=== PATIENT | female | born 1985 | race Caucasian/White ===

== ENCOUNTER → 2019-06-20 | Outpatient (CLI) | payer SELFPAY | END | disposition home or self-care (01) | LOC: LAB SHORT 14:05 → LAB 14:05 | DX: Z09 Encounter for follow-up examination after completed treatment for conditions other than malignant neoplasm (principal); Z86.14 Personal history of Methicillin resistant Staphylococcus aureus infection | CPT/HCPCS: 87070; 87075; 87205 ==

== ENCOUNTER 2019-11-16 10:57 | Emergency (ER) | payer SELFPAY ==
[~2019-11-16] VITALS: Ht 165.1 cm; Wt 61.2 kg
[2019-11-16] MEDS ORDERED: VITAMINS (12:32)
[2019-11-16] MEDS ORDERED: ALPR.5 PO (12:32)
== END 2019-11-16 14:47 | disposition home or self-care (01) ==
LOC: ER 10:57
DX: S96.911A Strain of unspecified muscle and tendon at ankle and foot level, right foot, initial encounter (principal); F17.200 Nicotine dependence, unspecified, uncomplicated; Z88.6 Allergy status to analgesic agent; Z88.5 Allergy status to narcotic agent; Z79.899 Other long term (current) drug therapy; X50.1XXA Overexertion from prolonged static or awkward postures, initial encounter; Y93.89 Activity, other specified
CPT/HCPCS: 73630; 99283-25

== ENCOUNTER 2020-09-04 17:34 | Emergency (ER) | payer SELFPAY ==
[~2020-09-04] VITALS: Ht 165.1 cm; Wt 61.2 kg
[~2020-09-04 17:34] MED LIST: ALPR.5 PO; VITAMINS
[2020-09-04 18:12] LABS: BASOPHILS ABSOLUTE AUTO 0.04 K/mm3 (0.00-0.23); BASOPHILS PERCENT AUTO 0 % (0-2); EOSINOPHILS ABSOLUTE AUTO 0.03 K/mm3 (0.00-0.68); EOSINOPHILS PERCENT AUTO 0 % (0-6); IMMATURE GRAN ABSOLUTE AUTO 0.03 K/mm3 (0.00-0.10); IMMATURE GRAN PERCENT AUTO 0 % (0-1); LYMPHOCYTES ABSOLUTE AUTO 2.89 K/mm3 (0.84-5.20); LYMPHOCYTES PERCENT AUTO 27 % (21-46); MONOCYTES ABSOLUTE AUTO 0.87 K/mm3 (0.16-1.47); MONOCYTES PERCENT AUTO 8 % (4-13); Mean Corpuscular HGB Conc 35.1 g/dL (31.5-36.5); Mean Corpuscular Volume 100 fL (80-100); Mean Platelet Volume 11.2 fL (9.1-12.4); NEUTROPHILS ABSOLUTE AUTO 7.01 K/mm3 (1.96-9.15); NEUTROPHILS PERCENT AUTO 64 % (41-73); Platelet Count 301 K/mm3 (150-400); RDW Coefficient Variation 12.2 % (11.7-14.2); RDW Standard Deviation 45.1 fL (35.1-46.3); Red Blood Cell Count 3.71 M/mm3 (3.80-5.20); White Blood Cell Count 10.87 K/mm3 (4.00-11.30)
[2020-09-04 18:40] LABS: Alanine Aminotransfer (ALT/SGP 31 U/L (12-78); Albumin, Blood 4.2 g/dL (3.4-5.0); Albumin/Globulin Ratio 1.2 (0.8-1.8); Alk Phos 40 U/L (50-136); Anion Gap 4 mmol/L (6-16); Aspartate Aminotrans (AST/SGOT 19 U/L (12-37); Bilirubin, Total 0.3 mg/dL (0.1-1.0); Blood Urea Nitrogen 11 mg/dL (8-24); Bun/Creatinine Ratio 15.6 (12.0-20.0); CO2, Blood 27 mmol/L (21-32); Calcium, Blood 9.1 mg/dL (8.5-10.1); Chloride, Blood 106 mmol/L (98-108); Creatinine, Blood 0.71 mg/dL (0.40-1.00); Globulin, Blood 3.5 g/dL (2.2-4.0); Glomerular Filtration Rate >60 (60-); Glucose, Blood 102 mg/dL (70-99); Potassium, Blood 3.8 mmol/L (3.5-5.5); Sodium, Blood 137 mmol/L (136-145); Total Protein, Blood 7.7 g/dL (6.4-8.2)
[2020-09-04] MEDS ORDERED: SUCR1 PO (19:34)
[2020-09-04] MEDS ORDERED: Omeprazole20 M1 PO (19:34)
== END 2020-09-04 20:46 | disposition home or self-care (01) ==
LOC: ER 17:34
PROVIDERS: Physician Assistant
DX: K29.70 Gastritis, unspecified, without bleeding (principal); Z88.6 Allergy status to analgesic agent; Z88.5 Allergy status to narcotic agent; Z87.891 Personal history of nicotine dependence
CPT/HCPCS: 36415; 80053; 84703; 85025; 93971; 99284-25; A9270

== ENCOUNTER → 2020-10-06 | Outpatient (CLI) | payer OTHER ==
[~2020-10-06] MED LIST changes: +Omeprazole20 M1 PO; +SUCR1 PO
[2020-10-07 13:08] LABS: HPV 16 Negative (Negative); HPV 18 Negative (Negative); HPV OTHER HR TYPES Negative (Negative)
== END ==
LOC: LAB SHORT 15:20 → LAB 15:20
PROVIDERS: Obstetrics & Gynecology
DX: N80.3 Endometriosis of pelvic peritoneum (principal)
CPT/HCPCS: 87624; G0145

== ENCOUNTER 2021-02-14 13:35 | Emergency (ER) | payer OTHER ==
[~2021-02-14] VITALS: Ht 162.6 cm; Wt 65.8 kg
[2021-02-14] MEDS ORDERED: AMOCLA875 PO (14:12)
== END 2021-02-14 14:25 | disposition home or self-care (01) ==
LOC: ER 13:35
DX: J32.9 Chronic sinusitis, unspecified (principal); B96.89 Other specified bacterial agents as the cause of diseases classified elsewhere; Z88.6 Allergy status to analgesic agent; Z88.8 Allergy status to other drugs, medicaments and biological substances; Z87.891 Personal history of nicotine dependence
CPT/HCPCS: 99284

== ENCOUNTER → 2021-02-16 | Outpatient (CLI) | payer OTHER ==
[~2021-02-16] MED LIST changes: +AMOCLA875 PO
[2021-02-16 19:34] LABS: International Normalized Ratio 1.04; Prothrombin Time Results 10.9 Sec (9.7-11.5)
== END | disposition home or self-care (01) ==
LOC: LAB SHORT 17:48
PROVIDERS: Chiropractor
DX: S39.011A Strain of muscle, fascia and tendon of abdomen, initial encounter (principal)
CPT/HCPCS: 85610; 85730

== ENCOUNTER 2021-03-17 12:17 | Day surgery (SDC) | payer OTHER ==
[~2021-03-17] VITALS: Ht 165.1 cm; Wt 59.5 kg
[2021-03-17] MEDS ORDERED: VITAMIN D310 MC1 PO (12:43)
--- NOTE | 2021-03-17 14:01 | NUR ---
03/17/21 1401 Steph Gandara CHLORAPREP USED BY [email or web address] TO PREP ABDOMEN. SIMIN AREA PREPPED WITH CHLORAHEXADINE BY [facility].
--- NOTE | 2021-03-17 16:45 | NUR ---
03/17/21 Shantal Hernandez 1525 PATIENT C/O PAIN NOTED TO LLQ, BULGE NOTED TO LLQ, MANUAL PRESSURE APPLIED. DR. STUBBS NOTIFIED. 1527 DR. STUBBS @ BEDSIDE TO EVALUATE PATIENT, NEW ORDER ABDOMINAL BINDER, WILL APPLIED AND CONTINUE TO MONITOR
--- NOTE | 2021-03-17 16:47 | NUR ---
03/17/21 8420 Shantal Scott @ 4561 DR. STUBBS @ BEDSIDE TO EVALUATE PATIENT, OK TO DISCHARGE, BINDER TO REMAIN IN PLACE FOR 24 HOURS, PATIENT WILL CALL MD OFFICE FOR NEW APPOINTMENT.
== END 2021-03-17 16:56 | disposition home or self-care (01) ==
LOC: ORSCSDS 12:17
PROVIDERS: Obstetrics & Gynecology
PROC: 0WBH4ZX Excision of Retroperitoneum, Percutaneous Endoscopic Approach, Diagnostic (ICD-10-PCS; principal; 2021-03-17 13:30)
PROC: 0UB74ZZ Excision of Bilateral Fallopian Tubes, Percutaneous Endoscopic Approach (ICD-10-PCS; principal; 2021-03-17 13:30)
DX: N80.3 Endometriosis of pelvic peritoneum (principal); F17.210 Nicotine dependence, cigarettes, uncomplicated
CPT/HCPCS: 88302; 88305; A9270; J0171; J1100; J2250; J2405; J2704; J2710; J3010; J7120

== ENCOUNTER → 2021-07-15 | Outpatient (CLI) | payer OTHER ==
[~2021-07-15] MED LIST changes: +VITAMIN D310 MC1 PO
[2021-07-16 10:27] LABS: Candida species (DNA Probe) Negative (NEGATIVE); G. vaginalis (DNA Probe) Negative (NEGATIVE); T. vaginalis (DNA Probe) Negative (NEGATIVE)
== END | disposition home or self-care (01) ==
LOC: LAB 11:25 → LAB SHORT 11:25
PROVIDERS: Obstetrics & Gynecology
DX: B37.3 Candidiasis of vulva and vagina (principal)
CPT/HCPCS: 87480; 87510; 87660

== ENCOUNTER 2021-09-26 17:02 | Emergency (ER) | payer OTHER ==
[~2021-09-26] VITALS: Ht 165.1 cm; Wt 59.0 kg
[2021-09-26] MEDS ORDERED: OXYC5 PO (20:24)
== END 2021-09-26 20:44 | disposition home or self-care (01) ==
LOC: ER 17:02
DX: S61.412A Laceration without foreign body of left hand, initial encounter (principal); W26.0XXA Contact with knife, initial encounter; Z88.5 Allergy status to narcotic agent; Z88.8 Allergy status to other drugs, medicaments and biological substances; Z87.891 Personal history of nicotine dependence; Z23 Encounter for immunization
CPT/HCPCS: 90714; A9270

== ENCOUNTER → 2022-01-04 | Outpatient (CLI) | payer OTHER ==
[~2022-01-04] MED LIST changes: +OXYC5 PO
[2022-01-04 16:00] LABS: BASOPHILS ABSOLUTE AUTO 0.04 K/mm3 (0.00-0.23); BASOPHILS PERCENT AUTO 1 % (0-2); EOSINOPHILS ABSOLUTE AUTO 0.07 K/mm3 (0.00-0.68); EOSINOPHILS PERCENT AUTO 1 % (0-6); Hematocrit 35.6 % (33.0-51.0); Hemoglobin 12.6 g/dL (11.5-16.0); IMMATURE GRAN ABSOLUTE AUTO 0.02 K/mm3 (0.00-0.10); IMMATURE GRAN PERCENT AUTO 0 % (0-1); LYMPHOCYTES ABSOLUTE AUTO 2.26 K/mm3 (0.84-5.20); LYMPHOCYTES PERCENT AUTO 31 % (21-46); MONOCYTES PERCENT AUTO 7 % (4-13); Mean Corpuscular HGB 34.2 pg (26.0-34.0); Mean Corpuscular HGB Conc 35.4 g/dL (31.5-36.5); Mean Corpuscular Volume 97 fL (80-100); Mean Platelet Volume 10.9 fL (9.1-12.4); NEUTROPHILS ABSOLUTE AUTO 4.44 K/mm3 (1.96-9.15); NEUTROPHILS PERCENT AUTO 61 % (41-73); Platelet Count 273 K/mm3 (150-400); RDW Coefficient Variation 12.1 % (11.7-14.2); RDW Standard Deviation 43.4 fL (35.1-46.3); Red Blood Cell Count 3.68 M/mm3 (3.80-5.20); White Blood Cell Count 7.33 K/mm3 (4.00-11.30)
== END | disposition home or self-care (01) ==
LOC: LAB 15:55 → LAB SHORT 15:55
PROVIDERS: Family Medicine
DX: R10.2 Pelvic and perineal pain (principal)
CPT/HCPCS: 85025

== ENCOUNTER → 2022-04-28 | Outpatient (CLI) | payer OTHER ==
[2022-04-29 15:12] LABS: HPV 16 Negative (Negative); HPV 18 Negative (Negative); HPV OTHER HR TYPES Negative (Negative)
== END | disposition home or self-care (01) ==
LOC: LAB SHORT 17:18 → LAB 17:18
PROVIDERS: Obstetrics & Gynecology
DX: Z01.419 Encounter for gynecological examination (general) (routine) without abnormal findings (principal)
CPT/HCPCS: 87624; G0145

== ENCOUNTER → 2022-07-25 | Outpatient (CLI) | payer OTHER | LOC: LAB 13:22 → LAB SHORT 13:22 | DX: R30.0 Dysuria (principal) | CPT/HCPCS: 87086 ==

== ENCOUNTER → 2022-12-09 | Outpatient (CLI) | payer OTHER ==
[2022-12-09 19:01] LABS: BASOPHILS ABSOLUTE AUTO 0.07 K/mm3 (0.00-0.23); BASOPHILS PERCENT AUTO 1 % (0-2); EOSINOPHILS ABSOLUTE AUTO 0.07 K/mm3 (0.00-0.68); EOSINOPHILS PERCENT AUTO 1 % (0-6); Hematocrit 37.3 % (33.0-51.0); Hemoglobin 12.9 g/dL (11.5-16.0); IMMATURE GRAN ABSOLUTE AUTO 0.02 K/mm3 (0.00-0.10); IMMATURE GRAN PERCENT AUTO 0 % (0-1); LYMPHOCYTES ABSOLUTE AUTO 2.61 K/mm3 (0.84-5.20); LYMPHOCYTES PERCENT AUTO 33 % (21-46); MONOCYTES ABSOLUTE AUTO 0.57 K/mm3 (0.16-1.47); MONOCYTES PERCENT AUTO 7 % (4-13); Mean Corpuscular HGB 33.3 pg (26.0-34.0); Mean Corpuscular HGB Conc 34.6 g/dL (31.5-36.5); Mean Corpuscular Volume 96 fL (80-100); Mean Platelet Volume 10.5 fL (9.1-12.4); NEUTROPHILS ABSOLUTE AUTO 4.65 K/mm3 (1.96-9.15); NEUTROPHILS PERCENT AUTO 58 % (41-73); Platelet Count 349 K/mm3 (150-400); RDW Coefficient Variation 11.8 % (11.7-14.2); RDW Standard Deviation 41.6 fL (35.1-46.3); Red Blood Cell Count 3.87 M/mm3 (3.80-5.20); White Blood Cell Count 7.99 K/mm3 (4.00-11.30)
[2022-12-09 19:14] LABS: Albumin, Blood 4.4 g/dL (3.4-5.0); Albumin/Globulin Ratio 1.2 (0.8-1.8); Bilirubin, Total 0.4 mg/dL (0.1-1.0); Bun/Creatinine Ratio 17.8 (12.0-20.0); Calcium, Blood 9.1 mg/dL (8.5-10.1); Creatinine, Blood 0.9 mg/dL (0.40-1.00); Globulin, Blood 3.6 g/dL (2.2-4.0); Potassium, Blood 3.9 mmol/L (3.5-5.5)
== END | disposition home or self-care (01) ==
LOC: LAB SHORT 18:58 → LAB 18:58
PROVIDERS: Emergency Medicine
DX: R11.0 Nausea (principal)
CPT/HCPCS: 80053; 83690; 85025

== ENCOUNTER 2023-01-01 21:02 | Emergency (ER) | payer OTHER ==
[~2023-01-01] VITALS: Ht 165.1 cm; Wt 61.2 kg
[2023-01-01 21:43] VITALS: BP 108/65
== END 2023-01-01 21:51 | disposition home or self-care (01) ==
LOC: ER 21:02
DX: S01.112A Laceration without foreign body of left eyelid and periocular area, initial encounter (principal); W01.198A Fall on same level from slipping, tripping and stumbling with subsequent striking against other object, initial encounter; Z88.6 Allergy status to analgesic agent; Z88.8 Allergy status to other drugs, medicaments and biological substances; Z88.5 Allergy status to narcotic agent; Z79.899 Other long term (current) drug therapy; Z87.891 Personal history of nicotine dependence
CPT/HCPCS: 12001; 99282-25

== ENCOUNTER 2023-08-25 20:20 | Emergency (ER) | payer OTHER ==
[~2023-08-25] VITALS: Ht 165.1 cm; Wt 62.6 kg
[2023-08-25 21:08] LABS: Albumin, Blood 4.2 g/dL (3.4-5.0); Albumin/Globulin Ratio 1.3 (0.8-1.8); Bilirubin, Total 0.4 mg/dL (0.1-1.0); Bun/Creatinine Ratio 26.7 (12.0-20.0); Calcium, Blood 8.5 mg/dL (8.5-10.1); Creatinine, Blood 0.83 mg/dL (0.40-1.00); Globulin, Blood 3.2 g/dL (2.2-4.0); Total Protein, Blood 7.4 g/dL (6.4-8.2)
[2023-08-25 21:14] LABS: BASOPHILS ABSOLUTE AUTO 0.04 K/mm3 (0.00-0.23); BASOPHILS PERCENT AUTO 1 % (0-2); EOSINOPHILS ABSOLUTE AUTO 0.05 K/mm3 (0.00-0.68); EOSINOPHILS PERCENT AUTO 1 % (0-6); Hematocrit 33.9 % (33.0-51.0); Hemoglobin 11.8 g/dL (11.5-16.0); IMMATURE GRAN ABSOLUTE AUTO 0.01 K/mm3 (0.00-0.10); IMMATURE GRAN PERCENT AUTO 0 % (0-1); LYMPHOCYTES ABSOLUTE AUTO 3.14 K/mm3 (0.84-5.20); LYMPHOCYTES PERCENT AUTO 41 % (21-46); MONOCYTES ABSOLUTE AUTO 0.54 K/mm3 (0.16-1.47); MONOCYTES PERCENT AUTO 7 % (4-13); Mean Corpuscular HGB 33.4 pg (26.0-34.0); Mean Corpuscular HGB Conc 34.8 g/dL (31.5-36.5); Mean Corpuscular Volume 96 fL (80-100); Mean Platelet Volume 11.2 fL (9.1-12.4); NEUTROPHILS ABSOLUTE AUTO 3.96 K/mm3 (1.96-9.15); NEUTROPHILS PERCENT AUTO 51 % (41-73); Platelet Count 301 K/mm3 (150-400); RDW Coefficient Variation 11.9 % (11.7-14.2); RDW Standard Deviation 41.9 fL (35.1-46.3); Red Blood Cell Count 3.53 M/mm3 (3.80-5.20); White Blood Cell Count 7.74 K/mm3 (4.00-11.30)
[2023-08-25 23:30] VITALS: BP 127/92
== END 2023-08-25 23:44 | disposition home or self-care (01) ==
LOC: ER 20:20
PROVIDERS: Emergency Medicine
DX: M62.838 Other muscle spasm (principal); Z88.8 Allergy status to other drugs, medicaments and biological substances; Z88.6 Allergy status to analgesic agent; Z88.5 Allergy status to narcotic agent; Z79.899 Other long term (current) drug therapy; Z87.891 Personal history of nicotine dependence
CPT/HCPCS: 71046; 80053; 84484; 85025; 93005; 93010; 99284-25

== ENCOUNTER → 2024-03-12 | Outpatient (CLI) | payer OTHER ==
[2024-03-15 15:26] LABS: ANTI-NUCLEAR AB ANA,IGG ELISA None Detected (None Detected)
== END | disposition home or self-care (01) ==
LOC: LAB 17:56 → LAB SHORT 17:56
PROVIDERS: Physician Assistant Medical
DX: R23.1 Pallor (principal)
CPT/HCPCS: 85651; 86038; 86140

== ENCOUNTER → 2024-10-28 | Emergency (ER) | payer OTHER ==
[~2024-10-28] VITALS: Ht 165.1 cm; Wt 63.5 kg
[2024-10-28 11:13] VITALS: BP 142/106
[2024-10-28 11:42] LABS: BASOPHILS ABSOLUTE AUTO 0.04 K/mm3 (0.00-0.23); BASOPHILS PERCENT AUTO 1 % (0-2); EOSINOPHILS ABSOLUTE AUTO 0.01 K/mm3 (0.00-0.68); EOSINOPHILS PERCENT AUTO 0 % (0-6); Hematocrit 37.4 % (33.0-51.0); Hemoglobin 12.7 g/dL (11.5-16.0); IMMATURE GRAN ABSOLUTE AUTO 0.02 K/mm3 (0.00-0.10); IMMATURE GRAN PERCENT AUTO 0 % (0-1); LYMPHOCYTES ABSOLUTE AUTO 1.73 K/mm3 (0.84-5.20); LYMPHOCYTES PERCENT AUTO 27 % (21-46); MONOCYTES ABSOLUTE AUTO 0.39 K/mm3 (0.16-1.47); MONOCYTES PERCENT AUTO 6 % (4-13); Mean Corpuscular HGB Conc 34.0 g/dL (31.5-36.5); Mean Corpuscular Volume 96 fL (80-100); NEUTROPHILS ABSOLUTE AUTO 4.20 K/mm3 (1.96-9.15); NEUTROPHILS PERCENT AUTO 66 % (41-73); NRBC ABSOLUTE 0.00 K/mm3 (0.00-0.02); NRBC Auto 0.0 /100 WBC (0.0-0.2); Platelet Count 287 K/mm3 (150-400); RDW Coefficient Variation 12.6 % (11.7-14.2); RDW Standard Deviation 43.8 fL (35.1-46.3)
[2024-10-28 12:04] LABS: Alanine Aminotransfer (ALT/SGP 29.0 U/L (12-78); Albumin, Blood 4.3 g/dL (3.4-5.0); Albumin/Globulin Ratio 1.3 (0.8-1.8); Anion Gap 4.0 mmol/L (3-11); Aspartate Aminotrans (AST/SGOT 25.0 U/L (12-37); Bilirubin, Total 0.4 mg/dL (0.1-1.0); Blood Urea Nitrogen 13.0 mg/dL (8-24); CO2, Blood 30.0 mmol/L (21-32); Calcium, Blood 8.7 mg/dL (8.5-10.1); Chloride, Blood 105.0 mmol/L (98-108); Creatinine, Blood 0.74 mg/dL (0.40-1.00); Globulin, Blood 3.2 g/dL (2.2-4.0); Glucose, Blood 104.0 mg/dL (70-99); Potassium, Blood 4.4 mmol/L (3.5-5.5); Sodium, Blood 135.0 mmol/L (136-145); Total Protein, Blood 7.5 g/dL (6.4-8.2)
== END ==
LOC: ER 10:23
PROVIDERS: Emergency Medicine
DX: S29.011A Strain of muscle and tendon of front wall of thorax, initial encounter (principal); X58.XXXA Exposure to other specified factors, initial encounter
CPT/HCPCS: 71046; 80053; 84484; 85025

== ENCOUNTER 2024-11-05 16:44 | Emergency (ER) | payer OTHER ==
[~2024-11-05] VITALS: Ht 165.1 cm; Wt 63.5 kg
[2024-11-05 17:53] LABS: BASOPHILS ABSOLUTE AUTO 0.04 K/mm3 (0.00-0.23); BASOPHILS PERCENT AUTO 1 % (0-2); EOSINOPHILS ABSOLUTE AUTO 0.05 K/mm3 (0.00-0.68); EOSINOPHILS PERCENT AUTO 1 % (0-6); Hematocrit 35.1 % (33.0-51.0); Hemoglobin 12.0 g/dL (11.5-16.0); IMMATURE GRAN ABSOLUTE AUTO 0.02 K/mm3 (0.00-0.10); IMMATURE GRAN PERCENT AUTO 0 % (0-1); LYMPHOCYTES ABSOLUTE AUTO 1.98 K/mm3 (0.84-5.20); LYMPHOCYTES PERCENT AUTO 35 % (21-46); MONOCYTES ABSOLUTE AUTO 0.60 K/mm3 (0.16-1.47); MONOCYTES PERCENT AUTO 11 % (4-13); Mean Corpuscular HGB Conc 34.2 g/dL (31.5-36.5); Mean Corpuscular Volume 96 fL (80-100); NEUTROPHILS ABSOLUTE AUTO 3.01 K/mm3 (1.96-9.15); NEUTROPHILS PERCENT AUTO 53 % (41-73); NRBC ABSOLUTE 0.00 K/mm3 (0.00-0.02); NRBC Auto 0.0 /100 WBC (0.0-0.2); Platelet Count 288 K/mm3 (150-400); RDW Coefficient Variation 12.4 % (11.7-14.2); RDW Standard Deviation 43.8 fL (35.1-46.3)
[2024-11-05 18:34] LABS: Alanine Aminotransfer (ALT/SGP 36 U/L (12-78); Albumin, Blood 4.5 g/dL (3.4-5.0); Albumin/Globulin Ratio 1.4 (0.8-1.8); Anion Gap 6 mmol/L (3-11); Aspartate Aminotrans (AST/SGOT 31 U/L (12-37); Bilirubin, Total 0.3 mg/dL (0.1-1.0); Blood Urea Nitrogen 12 mg/dL (8-24); CO2, Blood 28 mmol/L (21-32); Calcium, Blood 9.2 mg/dL (8.5-10.1); Chloride, Blood 104 mmol/L (98-108); Creatinine, Blood 0.79 mg/dL (0.40-1.00); Globulin, Blood 3.3 g/dL (2.2-4.0); Glucose, Blood 104 mg/dL (70-99); Potassium, Blood 3.7 mmol/L (3.5-5.5); Sodium, Blood 134 mmol/L (136-145); Total Protein, Blood 7.8 g/dL (6.4-8.2)
[2024-11-05] MEDS ORDERED: FentaNYL Citrate 50 MCG/ML 2 ML Injection IV ONE ×2 (20:20→23:30)
[2024-11-05 21:04] LABS: C-REACTIVE PROTEIN, EXT RANGE <0.290 mg/dL (0.000-0.300)
[2024-11-05] MEDS ORDERED: HYDROCODONE-AC1 EA19 PO (21:21)
[2024-11-05 22:02] LABS: Source, Urine Clean Catch
[2024-11-05 22:06] LABS: Bilirubin, Urine Neg (Neg); Glucose Qualitative, Urine Neg (Neg); Ketones, Urine Neg (Neg); Leukocyte Esterase, Urine Neg (Neg); Protein, Urine Neg (Neg); Specific Gravity, Urine 1.015 (1.003-1.022); Urobilinogen, Urine NORM (Normal)
[2024-11-05 22:10] LABS: Color, Urine Yellow (P-Yellow)
[2024-11-05 22:19] LABS: Red Blood Cells, Urine 0-2 /hpf (0-2); White Blood Cells, Urine Not Seen /hpf (0-5)
[2024-11-06] MEDS ORDERED: ACET500 PO (00:04)
[2024-11-06] MEDS ORDERED: GABA300 PO (00:04)
[2024-11-06 00:15] VITALS: BP 104/73
== END 2024-11-06 00:24 | disposition home or self-care (01) ==
LOC: ER 16:44
PROVIDERS: Emergency Medicine; Student in an Organized Health Care Education/Training Program
DX: S30.1XXA Contusion of abdominal wall, initial encounter (principal); X58.XXXA Exposure to other specified factors, initial encounter; M54.9 Dorsalgia, unspecified; G89.29 Other chronic pain; Z98.890 Other specified postprocedural states; Z79.899 Other long term (current) drug therapy; Z87.891 Personal history of nicotine dependence; Z88.6 Allergy status to analgesic agent; Z88.5 Allergy status to narcotic agent
CPT/HCPCS: 80053; 81001; 81025; 85025; 85651; 86140; 96374; 96376; 99284-25; J3010

== ENCOUNTER 2024-12-17 08:06 | Emergency (ER) | payer OTHER ==
[~2024-12-17] VITALS: Ht 165.1 cm; Wt 63.5 kg
[~2024-12-17 08:06] MED LIST changes: +ACET500 PO; +GABA300 PO; +HYDROCODONE-AC1 EA19 PO
[2024-12-17] MEDS ORDERED: HYDROmorphone HCl/Pf 1MG SYR IV ONE (08:40)
[2024-12-17] MEDS ORDERED: Ondansetron HCl 2 MG / ML 2ML Vial IV ONE (08:40)
[2024-12-17] MEDS ORDERED: PLAVIX75 MG PO (08:49)
[2024-12-17 08:53] LABS: BASOPHILS ABSOLUTE AUTO 0.04 K/mm3 (0.00-0.23); BASOPHILS PERCENT AUTO 1 % (0-2); EOSINOPHILS ABSOLUTE AUTO 0.02 K/mm3 (0.00-0.68); EOSINOPHILS PERCENT AUTO 0 % (0-6); Hematocrit 35.3 % (33.0-51.0); Hemoglobin 12.0 g/dL (11.5-16.0); IMMATURE GRAN ABSOLUTE AUTO 0.02 K/mm3 (0.00-0.10); IMMATURE GRAN PERCENT AUTO 0 % (0-1); LYMPHOCYTES ABSOLUTE AUTO 1.41 K/mm3 (0.84-5.20); LYMPHOCYTES PERCENT AUTO 19 % (21-46); MONOCYTES ABSOLUTE AUTO 0.33 K/mm3 (0.16-1.47); MONOCYTES PERCENT AUTO 4 % (4-13); Mean Corpuscular HGB Conc 34.0 g/dL (31.5-36.5); Mean Corpuscular Volume 97 fL (80-100); NEUTROPHILS ABSOLUTE AUTO 5.70 K/mm3 (1.96-9.15); NEUTROPHILS PERCENT AUTO 76 % (41-73); NRBC ABSOLUTE 0.00 K/mm3 (0.00-0.02); NRBC Auto 0.0 /100 WBC (0.0-0.2); Platelet Count 282 K/mm3 (150-400); RDW Coefficient Variation 12.6 % (11.7-14.2); RDW Standard Deviation 45.4 fL (35.1-46.3)
[2024-12-17 09:18] LABS: Alanine Aminotransfer (ALT/SGP 30.0 U/L (12-78); Albumin, Blood 3.9 g/dL (3.4-5.0); Albumin/Globulin Ratio 1.3 (0.8-1.8); Anion Gap 9.0 mmol/L (3-11); Aspartate Aminotrans (AST/SGOT 27.0 U/L (12-37); Bilirubin, Total 0.4 mg/dL (0.1-1.0); Blood Urea Nitrogen 9.0 mg/dL (8-24); CO2, Blood 25.0 mmol/L (21-32); Calcium, Blood 8.6 mg/dL (8.5-10.1); Chloride, Blood 107.0 mmol/L (98-108); Creatinine, Blood 0.73 mg/dL (0.40-1.00); Globulin, Blood 3.1 g/dL (2.2-4.0); Glucose, Blood 97.0 mg/dL (70-99); Potassium, Blood 4.1 mmol/L (3.5-5.5); Sodium, Blood 137.0 mmol/L (136-145); Total Protein, Blood 7.0 g/dL (6.4-8.2)
[2024-12-17 10:36] LABS: Source, Urine Clean Catch
[2024-12-17 10:51] LABS: Bilirubin, Urine Neg (Neg); Color, Urine Yellow (P-Yellow); Glucose Qualitative, Urine Neg (Neg); Ketones, Urine Neg (Neg); Leukocyte Esterase, Urine Neg (Neg); Protein, Urine Neg (Neg); Specific Gravity, Urine 1.010 (1.003-1.022); Urobilinogen, Urine NORM (Normal)
[2024-12-17 11:07] LABS: Red Blood Cells, Urine 0-2 /hpf (0-2); White Blood Cells, Urine 0-2 /hpf (0-5)
[2024-12-17] MEDS ORDERED: Percocet 5-3251 EACH PO (11:34)
[2024-12-17] MEDS ORDERED: CYCL10 PO (11:34)
[2024-12-17] MEDS ORDERED: OxyCODONE 5 mg/Acetamin 325 mg TABLET PO ONE (11:35)
[2024-12-17 12:15] VITALS: BP 136/89
== END 2024-12-17 12:20 | disposition home or self-care (01) ==
LOC: ER 08:06
PROVIDERS: Physician Assistant
DX: S39.012A Strain of muscle, fascia and tendon of lower back, initial encounter (principal); X58.XXXA Exposure to other specified factors, initial encounter; Z79.899 Other long term (current) drug therapy; Z87.891 Personal history of nicotine dependence; Z88.6 Allergy status to analgesic agent; Z88.5 Allergy status to narcotic agent
CPT/HCPCS: 71046; 80053; 81001; 83690; 85025; 96374; 96375; 99283-25; A9270; J1171; J2405